=== PATIENT | female | born 1995 | race Caucasian/White ===

== ENCOUNTER 2023-02-17 13:15 | Outpatient (RCR) | payer BC, SELFPAY ==
[2023-02-17 13:31] VITALS: BMI 40.1
== END 2023-04-06 10:18 | disposition home or self-care (01) ==
LOC: ANHDMC 13:15
PROVIDERS: PCP Family Medicine; Visit Provider Physician Assistant Medical
DX: E66.9 Obesity, unspecified (principal); Z71.3 Dietary counseling and surveillance
CPT/HCPCS: 97802

== ENCOUNTER 2023-08-27 11:27 | Emergency (ER) | payer OTHER, SELFPAY ==
--- NOTE | ~2023-08-27 | XR_ITS ---
XR chest 2V DATE: 08/27/2023 13:16 INDICATION: Mid chest pain. Syncopal episode. TECHNIQUE: 2 views COMPARISON: None FINDINGS: Normal heart size. No hilar or mediastinal enlargement. No pulmonary infiltrate or consolid ation, pleural effusion or pulmonary vascular congestion or pneumothorax. IMPRESSION: Negative Reviewed, dictated and finalized at location B. WORKER IMPRESSION: Negative
[2023-08-27 12:34] VITALS: BP 146/97; PULSE 97; RESP 16; TEMP 36.7; O2SAT 100
--- NOTE | 2023-08-27 12:43 | ECG_ITS ---
Measurements Intervals Jay Rate: 82 P: 23 NM: 143 QRS: 31 QRSD: 77 T: 13 QT: 368 QTc: 431 Interpretive Statements SINUS RHYTHM BASELINE ARTIFACT- I, II, III, AVR, AVL, AVF, V1-V6 NORMAL ECG NO PREVIOUS ECG AVAILABLE FOR COMPARISON Electronically Signed On 08-27-2023 12:55:53 DIRECTOR IN[employer] SALES by Chino Gan D.O.
[2023-08-27 13:01] LABS: Basophils Percent Auto 0.1 % (0.2-1.2); Eosinophils Percent Auto 0.4 % (0-4.4); Hematocrit 40.5 % (37.0-47.0); Hemoglobin 12.7 g/dL (12.0-15.0); Immature Granulocyte Absolute 0.05 K/mm3 (0.00-0.031); Immature Granulocyte Percent A 0.7 % (0-0.5); Lymphocytes Absolute Auto 1.01 K/mm3 (0.9-3.2); Lymphocytes Percent Auto 13.5 % (18.3-44.2); Mean Corpuscular HGB Conc 31.4 g/dl (32-36); Mean Corpuscular Hemoglobin 28.3 pg (26-34); Mean Corpuscular Volume 90.2 fl (80-100); Mean Platelet Volume 8.4 fl (7.4-10.4); Monocytes Absolute Auto 0.6 K/mm3 (0.1-0.6); Monocytes Percent Auto 7.9 % (2.6-8.5); Neutrophils Absolute Auto 5.8 K/mm3 (1.3-6.7); Neutrophils Percent Auto 77.4 % (45.5-73.1); Platelet Count Result 243 k/mm3 (150-375); Red Blood Count 4.49 M/mm3 (4.2-5.4); Red Cell Distribution Width 14.2 % (11.5-14.5); White Blood Count 7.5 K/mm3 (4.5-10.0)
[2023-08-27 13:11] LABS: Alanine Aminotransferase 36 U/L (6-35); Albumin Level 4.3 g/dL (3.5-5.1); Alkaline Phosphatase 83 U/L (38-126); Anion Gap 8 mmol/L (8-16); Aspartate Amino Transferase 49 U/L (14-36); Bilirubin,Total 0.6 mg/dL (0.2-1.3); Blood Urea Nitrogen 10 mg/dL (7-17); Carbon Dioxide 25 mmol/L (22-30); Chloride 105 mmol/L (98-107); Estimated CRCL calculation 134 ml/min; Estimated Glomerular Filt Rate > 60; Glucose 107 mg/dL (65-110); Lipase 67 U/L (23-300); Potassium 4.2 mmol/L (3.4-5.0); Sodium 138 mmol/L (137-145)
[2023-08-27 13:14] LABS: Partial Thromboplastin Time 29.5 SECONDS (22.3-36.8)
[2023-08-27 13:23] LABS: Troponin I 0.018 ng/mL (0.000-0.034)
--- NOTE | 2023-08-27 16:34 | PC.NURSE ---
pt states she has to go home. will follow up with pmd.
== END 2023-08-27 16:48 | disposition left against medical advice (07) ==
PROVIDERS: Emergency Provider Emergency Medicine; PCP Family Medicine
DX: R55 Syncope and collapse (principal)
CPT/HCPCS: 36415; 71046; 80053; 83690; 84484; 85025; 85610; 85730; 93005; 99199

== ENCOUNTER 2023-09-10 10:48 | Outpatient (CLI) | payer OTHER, SELFPAY ==
--- NOTE | ~2023-09-10 | MR_ITS ---
EXAMINATION: MR brain/brain stem wo/w con DATE: 09/10/2023 13:10 INDICATION: Syncope and collapse. TECHNIQUE: Magnetic resonance imaging (MRI) of the brain and brainstem was performed without and with 20 mL MultiHance intravenous contrast. COMPARISON: None. FINDINGS: There is a small focus of increased T2-weighted signal intensity in the right deep white ma tter, which is normal as an isolated finding. There is no intracranial hemorrhage, acute infarction, or abnormal intracranial mass lesion. The ventricles are normal in size. The orbits are normal. The p aranasal sinuses are clear. The mastoid air cells are normal. IMPRESSION: 1. Normal brain. Reviewed, dictated and finalized at location E. ATRIC LPN IMPRESSION: 1. Normal brain.
--- NOTE | 2023-09-14 08:52 | WPDNEUROLOGY ---
Neurology EEG Report General Information Date of Study: 09/10/23 TEST eeg DIAGNOSIS syncope and collapse CONDITION OF RECORDING awake drowsy and sleep EEG NUMBER 24-11 CLINICAL HISTORY patient reports she has been losing consciousness at least once a day for the last 2 weeks sometimes she can feel it coming on but not always. EEG DESCRIPTION Basic resting occipital frequency consists of medium voltage 9 to 11 hertz per 2nd alpha admixed with low-voltage 15 to 18 hertz per 2nd beta. During drowsiness low-voltage beta activity seen diffusely admixed with waxing and waning posterior alpha rhythm. Bilateral symmetrical sleep activity seen during sleep. Photic stimulation produced normal drive. Hyperventilation produced normal and symmetrical buildup without any focal slowing. Non paroxysmal nonfocal nonlateralizing. IMPRESSION Normal record
== END 2023-09-10 10:49 | disposition home or self-care (01) ==
PROVIDERS: PCP Family Medicine; Visit Provider Physician Assistant Medical
DX: R55 Syncope and collapse (principal)
CPT/HCPCS: 70553; 95816; A9577

== ENCOUNTER 2024-11-13 09:08 | Outpatient (CLI) | payer BC, SELFPAY ==
--- OUTSIDE RECORDS SUMMARY | 2024-11-13 09:55 | XMS_ITS | Clinical Summary ---
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 Gender Identity Not on file Sexual Orientation Not on file Obstetrics History Last Filed Vital Signs Vital Sign Reading Time Taken Comments Blood Pressure 106/70 04/07/2024 7:08 PM CDT Pulse 90 04/07/2024 7:08 PM CDT Temperature 36.8 C (98.2 F) 04/07/2024 7:08 PM CDT Respiratory Rate 18 04/07/2024 7:08 PM CDT Oxygen Saturation 98% 04/07/2024 7:08 PM CDT Inhaled Oxygen Concentration - - Weight 93 kg (205 lb) 04/07/2024 7:08 PM CDT Height 160 cm (5' 3 ) 04/07/2024 7:08 PM CDT Body Mass Index 36.31 04/07/2024 7:08 PM CDT Plan of Treatment Health Maintenance Due Date Last Done Comments Cervical Cancer Screening 1996 Depression Screening 1996 Hepatitis C Screening 1996 Regular Well Visit/Exam 18-64 2014 Influenza Vaccine (#1) 2024 DTaP/Tdap/Td Vaccine (8 - Td or Tdap) 03/27/2027 03/27/2017, 08/03/2006, 04/21/2001, Additional history exists Hepatitis B Screening Completed 01/12/1997 , 1996, 1996 HPV Vaccines Completed 04/19/2007, 11/22, 10/18/2006 Varicella Vaccines Completed 02/06/2008, 07/13/1997 Pneumococcal vaccine <65 Aged Out No longer eligible based on patient's age to complete this topic Insurance [employer] OPEN ACCESS [employer] OOS Care Teams Geek Squad Manager Relationship Specialty Start Date End Date No, Physician PCP - General 09/06/23
--- OUTSIDE RECORDS SUMMARY | 2024-11-13 09:55 | XMS_ITS | Referral Summary ---
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
--- OUTSIDE RECORDS SUMMARY | 2024-11-13 09:55 | XMS_ITS | Clinical Summary ---
Author Organization [facility] Address [address] [place] [address] Care Team Providers Care Sport Shoe Spike Assembler Name Role Phone Hermelinda Wagner PA-C Primary Care Provider [phone] Source Comments [facility],non-[facility] health Affiliates and Associated Physician Practices is amultiple site organization consisting of ambulatory clinics and hospital sitesin [place], [place], [place] and [place]. This disclosure is being madepursuant to the Care Everywhere program and may not contain all information available regarding this patient. Last updated 18.[facility] Social History Tobacco Use Types Packs/Day Years Used Date Smoking Tobacco: Never Assessed Sex and Gender Information Value Date Recorded Sex Assigned at Not on file Gender Identity Not on file Sexual Orientation Not on file Plan of Treatment Upcoming Encounters Date Type Department Care Team (Late st Contact Info) Description 06/18/2025 8:20 AM CDT Office Visit [facility] - Rheumatology [address] [place] [address], [facility] [place] [phone] Charo Moore MD [address] [place] [address] [place] [phone] Health Maintenance Due Date Last Done Comments PAP SMEAR 1996 HIV SCREENING 2011 HEPATITIS C SCREENING 06/27/2014 DTAP/TDAP/TD VACCINES (1 - Tdap) 2015 HEPATITIS B VACCINE (1 of 3 - 19+ 3-dose series) 2015 COVID-19 VACCINE ( - 2023-2 5 season) 2024 INFLUENZA VACCINE (#1) 2024 DEPRESSION SCREENING 08/23/2024 ZOSTER VACCINE (1 of 2) 2046 HIB VACCINE Aged Out No longer eligi ble based on patient's age to complete this topic HPV VACCINE Aged Out No longer eligi ble based on patient's age to complete this topic MENINGOCOCCAL (Group B) VACC INE SHARED DECISION-MAKING Aged Out No longer eligibl e based on patient's age to complete this topic MENINGOCOCCAL GROUPS A/C/Y/W VACCINE Aged Out No longer eligible b ased on patient's age to complete this topic PNEUMOCOCCAL VACCINE Aged Out No long er eligible based on patient's age to complete this topic Care Teams Sport Shoe Spike Assembler Relationship Specialty Start Date End Date Hermelinda Wagner PA-C [address] [place] [address] PCP - General Physician Health Screener 10/19/23
--- NOTE | 2024-11-24 14:45 | WPDHOLTEREM ---
Holter/Event Monitor Holter/Event Monitor Date of procedure: 11/13/24 Holter/Event Procedure: 3-7 Day Holter Monitor Indications: Palpitations Conclusion: 1. 5 days holter monitor on 11/13/24. 2. Underlying rhythm is sinus rhythm. HR range 63-173 bpm; average HR 88 bpm. HR at 173 bpm was on 11/13/24 at 3:25 pm. 3. There are rare premature supraventricular complexes, rare supraventricular couplets, and rare supraventricular triplets. No supraventricular tachycardia. 4. There are rare premature ventricular complexes. No ventricular tachycardia. 5. No significant pauses greater than 3 seconds. 6. Patient reports 1 episode of symptom of shortness of breath which demonstrates sinus rhythm at 96 bpm.
== END 2024-11-13 09:09 | disposition home or self-care (01) ==
LOC: ANHCARD 09:09
PROVIDERS: PCP Family Medicine; Visit Provider Student in an Organized Health Care Education/Training Program
DX: R00.2 Palpitations (principal); R55 Syncope and collapse
CPT/HCPCS: 93242

== ENCOUNTER 2024-11-23 12:13 | Outpatient (CLI) | payer BC, SELFPAY ==
--- NOTE | ~2024-11-23 | US_ITS ---
US right upper quadrant INDICATION: Abnormal levels of serum enzymes PROCEDURE: Realtime right upper abdominal ultrasound. COMPARISON: No prior studies for comparison. FINDINGS: The pancreas is normal without focal mass or pancreatic ductal dilation. Liver echotexture is normal without focal mass or intrahepatic biliary dilatation. There is normal directional flow i n the portal vein. The gallbladder is normal without stones, gallbladder wall thickening or pericholecystic fluid. Comm on bile duct measures 4 mm. No sonographic Baugh's sign. IMPRESSION: 1: Normal limited abdominal ultrasound. Reviewed, dictated and finalized at location A.
== END 2024-11-23 12:14 | disposition home or self-care (01) ==
LOC: MICIMG 12:13
PROVIDERS: PCP Family Medicine; Visit Provider Student in an Organized Health Care Education/Training Program
DX: R74.8 Abnormal levels of other serum enzymes (principal)
CPT/HCPCS: 76705